=== PATIENT | male | born 1975 | race Hispanic/Latino ===

== ENCOUNTER 2019-04-21 21:02 | Emergency (ER) | payer SELFPAY ==
[2019-04-21] MEDS ORDERED: SODIUM CHLORIDE 0.9% 1000ML 1,000 ML IV ONE (21:34)
[2019-04-21] MEDS ORDERED: CEFTRIAXONE SODIUM 2 GM VIAL ONE (21:34)
[2019-04-21] MEDS ORDERED: KETOROLAC TROMETHAMINE 30MG/ML ONE (21:34)
[2019-04-21 21:44] LABS: BASOPHILS % (AUTO) 0.4 % (0.0-5.0); EOSINOPHILS % (AUTO) 1.7 % (0.0-8.0); HEMATOCRIT 45.4 % (42-54); LYMPHOCYTES % (AUTO) 19.4 % (21.0-51.0); MEAN CORPUSCULAR HEMOGLOBIN 29.3 pg (27.0-33.0); MEAN CORPUSCULAR HGB CONC 33.9 g/dL (32.0-36.0); MEAN CORPUSCULAR VOLUME 86.5 fL (79-99); MONOCYTES % (AUTO) 10.1 % (3.0-13.0); NEUTROPHILS % (AUTO) 68.4 % (40.0-77.0); NUCLEATED RED BLOOD CELLS 0.1 % (0.0-0.19); PLATELET COUNT (AUTO) 190 K/uL (130-400); RED BLOOD CELL COUNT(AUTO) 5.25 MIL/uL (4.50-6.20); RED CELL DISTRIBUTION WIDTH 13.9 % (11.0-15.5); WHITE BLOOD COUNT (AUTO) 7.6 K/uL (4.8-10.8)
[2019-04-21 21:51] LABS: INR 1.17 (0.85-1.15); PARTIAL THROMBOPLASTIN TIME 31.1 SEC (26.3-35.5); PROTHROMBIN TIME 12.2 SEC (9.6-11.6)
[2019-04-21 22:07] LABS: B-TYPE NATRIURETIC PEPTIDE < 5 pg/mL (0-100)
[2019-04-21 22:16] LABS: CREATININE 1.2 mg/dL (0.5-1.5); POTASSIUM 3.4 mmol/L (3.5-5.1)
[2019-04-21 22:18] LABS: ALBUMIN 3.9 g/dL (3.5-5.0); BILIRUBIN,TOTAL 0.5 mg/dL (0.2-1.0); TOTAL PROTEIN, SERUM 7.9 g/dL (6.0-8.3)
[2019-04-21] MEDS ORDERED: SULFAMETHOX-TMP DS 800/160 TAB ONE (22:46)
== END 2019-04-21 23:04 | disposition home or self-care (01) ==
LOC: EDH 21:02
DX: L03.116 Cellulitis of left lower limb (principal); B35.3 Tinea pedis
CPT/HCPCS: 36415; 73630; 80053; 82550; 83605; 83880; 84484; 85025; 85610; 85730; 87040 ×2; 93005; 93971; 96374; 96375; 99285; J0696; J1885; J7030

== ENCOUNTER 2019-04-24 11:19 | Emergency (ER) | payer OTHER ==
[2019-04-24] MEDS ORDERED: CEPHALEXIN 500 MG CAPSULE ONE (11:39)
== END 2019-04-24 12:39 | disposition home or self-care (01) ==
LOC: EDH 11:19
DX: L03.116 Cellulitis of left lower limb (principal); B35.3 Tinea pedis; Z87.891 Personal history of nicotine dependence

== ENCOUNTER 2021-03-24 17:01 | Emergency (ER) | payer OTHER, SELFPAY ==
[~2021-03-24] VITALS: Ht 172.7 cm; Wt 95.3 kg
[2021-03-24 17:02] VITALS: BP 149/74
== END 2021-03-24 21:02 | disposition home or self-care (01) ==
LOC: EDH 17:19
DX: M54.2 Cervicalgia (principal); Z53.21 Procedure and treatment not carried out due to patient leaving prior to being seen by health care provider